=== PATIENT | female | born 1960 | race Caucasian/White ===

== ENCOUNTER 2019-09-10 09:49 | Emergency (ER) | payer BC ==
[~2019-09-10] VITALS: Ht 162.6 cm; Wt 69.0 kg
[2019-09-10 09:55] VITALS: BP 151/84
== END 2019-09-10 13:15 | disposition home or self-care (01) ==
LOC: ER 09:49
DX: B34.9 Viral infection, unspecified (principal); M79.10 Myalgia, unspecified site; R06.02 Shortness of breath; R05 Cough; Z88.0 Allergy status to penicillin; Z88.2 Allergy status to sulfonamides
CPT/HCPCS: 36415; 87502; 87503; 99283